=== PATIENT | female | born 1985 | race Caucasian/White ===

== ENCOUNTER 2021-03-22 05:42 | Emergency (ER) | payer BC ==
[~2021-03-22] VITALS: Ht 152.4 cm; Wt 83.6 kg
[2021-03-22] MEDS ORDERED: MAALOX/HYOSCYAMINE/LIDOCAINE 45 ML BTL PO ONE (06:00)
[2021-03-22] MEDS ORDERED: ONDANSETRON ODT 4 MG PO ONE (06:00)
[2021-03-22] MEDS ORDERED: KETOROLAC 30 MG/1 ML IM ONE (06:00)
[2021-03-22] MEDS ORDERED: MAALOX/HYOSCYAMINE/LIDOCAINE 45 ML BTL ONE (06:20)
[2021-03-22] MEDS ORDERED: KETOROLAC 60 MG/2 ML ONE (06:20)
[2021-03-22] MEDS ORDERED: ONDANSETRON ODT 4 MG ONE (06:20)
[2021-03-22 07:14] VITALS: BP_DIAS 87
[2021-03-22 08:27] VITALS: BP_SYST 128
== END 2021-03-22 08:42 | disposition home or self-care (01) ==
LOC: ED 08:30
DX: R51.9 Headache, unspecified (principal); R11.0 Nausea; Z20.822 Contact with and (suspected) exposure to COVID-19
CPT/HCPCS: 96372; 99283; J1885; Q0162; U0003; U0005